=== PATIENT | male | born 1980 | race Caucasian/White ===

== ENCOUNTER 2016-11-17 10:41 | Day surgery (SDC) | payer BC ==
[2016-11-16 13:32] VITALS: BMI 34.9
[2016-11-17] MEDS ORDERED: BUPIVACAINE HCL/PF 2.5 MG/ML - 30 ML VIAL IJ ONE (12:16)
[2016-11-17] MEDS ORDERED: ROPIVACAINE HCL 0.5% 30ML VIAL ONE (12:32)
[2016-11-17] MEDS ORDERED: DEXAMETHASONE SOD PHOSPHATE/PF 10 MG/ML SDV ONE (12:32)
[2016-11-17] MEDS ORDERED: MIDAZOLAM HCL 2 MG/2 ML SINGLE DOSE VIAL ONE (12:33)
[2016-11-17] MEDS ORDERED: PROPOFOL 20 ML ONE ×2 (13:03→13:25)
[2016-11-17] MEDS ORDERED: SUCCINYLCHOLINE CHLORIDE 200 MG/10 ML VIAL ONE (13:16)
[2016-11-17] MEDS ORDERED: DEXAMETHASONE SOD PHOSPHATE 4 MG/1 ML VIAL ONE (13:38)
[2016-11-17] MEDS ORDERED: ONDANSETRON 4 MG/2 ML VIAL ONE (13:38)
[2016-11-17] MEDS ORDERED: CLINDAMYCIN PHOSPHATE 600 MG/4 ML VIAL ONE (13:38)
[2016-11-17] MEDS ORDERED: BUPIVACAINE HCL/PF 0.25% (2.5MG/ML) 10 ML VIAL IJ ONE (13:50)
[2016-11-17] MEDS ORDERED: ONDANSETRON 4 MG/2 ML VIAL IVPUSH PRN (14:41)
[2016-11-17] MEDS ORDERED: oxyCODONE HCL 5 MG TABLET PO PRN ×2 (14:41)
[2016-11-17] MEDS ORDERED: LACTATED RINGERS SOLUTION 1,000 ML IV SCH (14:45)
[2016-11-17 15:34] VITALS: BP 128/74; PULSE 75
[2016-11-17 15:35] VITALS: TEMP 98
--- NOTE | 2016-11-18 13:36 | OP ---
DATE OF OPERATION: 11/17/2016 SURGEON: Nelson Mcgee MD CONVEYOR LOADER: TOMAS Sheth PREOPERATIVE DIAGNOSIS: Left Achilles tendon rupture. POSTOPERATIVE DIAGNOSIS: Left Achilles tendon rupture. PROCEDURE: Repair of left Achilles tendon. FINDINGS: A torn Achilles tendon at the junction between the proximal and middle one-third. PROCEDURE: Informed consent was obtained. The patient was taken to the operating room where the left lower extremity was prepped and draped in a sterile fashion with the patient in prone position. Prior to the start of surgery, the patient received a popliteal block. Incision was made longitudinally centered along the tear at the junction between the proximal and middle-third of the tendon. This was taken down, the paratenon was incised and the tendon ends were identified. Necrotic tissue was debrided from the ends and the wound was irrigated with copious amounts of irrigation. Number 5 Ethibond was used for a [place] interlocking stitch for the proximal and distal portions. This was secured along the central portion of the tendon and then oversewn with a number 2 FiberWire in [id number] interrupted sutures around the circumference of the tendon. The tendon was then tested and found to have good stability and strength. The wound was irrigated with copious amounts of irrigation and a layered closure with 2-0 Vicryl and gamal was performed. A sterile dressing was placed. The patient was transferred to the recovery room without complication. NELSON MCGEE M.D. LASHON/[id number]
--- NOTE | 2016-11-21 14:06 | PATH ---
Surgical Pathology Report Patient Name: ENA THOMSON Med. Rec. #: [id number] /Age/Gender: 1980 (Age: 36) / M Account: [id number] Location: [facility] Taken: 11/17/2016 Received: 11/17/2016 Reported: 11/21/2016 Physicians: Nelson De Luna M.D. Specimen(s) Received LEFT ACHILLES TENDON FRAGMENT Clinical History Ruptured Achilles left Final Diagnosis SOFT TISSUE, LEFT ACHILLES TENDON FRAGMENT, EXCISION: ORGANIZED FIBROUS CONNECTIVE TISSUE WITH DEGENERATIVE CHANGES, AND PORTIONS OF SYNOVIUM. Electronically Signed Brandan Roy M.D. Gross Description Received in formalin labeled "Achilles tendon fragment," is a 3.0 x 2.5 x 0.7 cm aggregate of multiple sepulveda fragments of possible tendon. Biometrics Technician sections are submitted in one cassette. /11/20/2016 saudi11/20/2016
== END 2016-11-17 15:39 | disposition home or self-care (01) ==
LOC: FASU 10:41
PROVIDERS: ATTEND Orthopaedic Surgery
PROC: 0LQP0ZZ Repair Left Lower Leg Tendon, Open Approach (ICD-10-PCS; principal; 2016-11-17 13:42)
DX: S86.012A Strain of left Achilles tendon, initial encounter (principal); X58.XXXA Exposure to other specified factors, initial encounter; Y93.9 Activity, unspecified; Y92.9 Unspecified place or not applicable
CPT/HCPCS: 88304-TC; 94760; 97116-GP